=== PATIENT | male | born 1990 | race Two or more races ===

== ENCOUNTER 2018-04-17 02:47 | Emergency (ER) | payer OTHER ==
[~2018-04-17] VITALS: Ht 190.5 cm; Wt 88.5 kg
[2018-04-17] MEDS ORDERED: ZYNCOF 20-400120 ML PO (07:09)
[2018-04-17] MEDS ORDERED: ALBUTEROL2.5 MG/3 M IH (07:09)
== END 2018-04-17 07:21 | disposition home or self-care (01) ==
LOC: ER 02:47
DX: B34.9 Viral infection, unspecified (principal)